=== PATIENT | female | born 1975 | race Caucasian/White ===

== ENCOUNTER → 2017-03-06 | Day surgery (SDC) | payer OTHER ==
[~2017-03-06] MED LIST: LACTATED RINGER'S 1000 ML INJ 1,000 ML ONE; OMEP20CA5 PO; PROPOFOL 200 MG/20 ML AMP IV ONE
--- NOTE | 2017-03-06 10:52 | GIPROC ---
[facility] [address] [facility], [address] EGD PROCEDURE REPORT EXAM DATE: 03/06/2017 PATIENT NAME: Marah Dial MR #: [id number] BIRTHDATE: 1975 ATTENDING: Anabell Murray MD ORDER #: [id number] COLLEGE TEACHER: Nica Mckeon RN STATUS: outpatient INDICATIONS: The patient is a 41 yr old female here for an EGD due to history of esophageal reflux PROCEDURE PERFORMED: EGD w/ biopsy MEDICATIONS: None and Per Anesthesia. TOPICAL ANESTHETIC: CONSENT: The patient understands the risks and benefits of the procedure and understands that these risks include, but are not limited to: sedation, allergic reaction, infection, perforation and/or bleeding. Alternative means of evaluation and treatment include, among others: physical exam, x-rays, and/or surgical intervention. The patient elects to proceed with this endoscopic procedure. medical equipment was checked for proper function. Hand hygiene and appropriate measures for infection prevention was taken. After the risks, benefits and alternatives of the procedure were thoroughly explained, Informed consent was verified, confirmed and timeout was successfully executed by the treatment team. The patient was anesthetized with topical anesthesia and the EG-[id number] ([id number]) endoscope was introduced through the mouth and advanced to the second portion of the duodenum. Retroflexed views revealed no abnormalities The gastroscope was then slowly withdrawn and removed. STOMACH: There was erythematous moderate gastritis in the gastric antrum. A biopsy was performed using cold forceps. Sample sent for histology. ESOPHAGUS: The mucosa of the esophagus appeared normal. DUODENUM: The duodenal mucosa appeared normal in the bulb and second portion of the duodenum. ADVERSE EVENTS: There were no complications. IMPRESSIONS: 1. There was erythematous gastritis in the gastric antrum; biopsy was performed 2. The esophagus appeared normal 3. Normal duodenal mucosa in the bulb and second portion of the duodenum 4. Retroflexed views revealed no abnormalities RECOMMENDATIONS: 1. Await biopsy results. Biopsy results will not be ready for 7-10 days. If you don't hear from us in two weeks, call our office for biopsy results. 2. Anti-reflux regimen PATIENT CONDITION: stable DISPOSITION: Home REPEAT EXAM: Return 3 years EGD Anabell Murray MD eSigned: Anabell Murray MD 03/06/2017 10:51 AM cc: Werner Joyner [facility] [place] PATIENT NAME: Marah Dial Mervin MR#: [id number]
== END | disposition home or self-care (01) ==
LOC: ESDC 09:10
PROVIDERS: ATTEND Internal Medicine Gastroenterology
DX: K21.9 Gastro-esophageal reflux disease without esophagitis (principal); K29.70 Gastritis, unspecified, without bleeding
CPT/HCPCS: 00740; 43239; 88305; 88312; J3010; J7120

== ENCOUNTER → 2017-03-20 | Outpatient (CLI) | payer OTHER ==
[~2017-03-20] MED LIST changes: -LACTATED RINGER'S 1000 ML INJ 1,000 ML ONE; -PROPOFOL 200 MG/20 ML AMP IV ONE
[2017-03-20 08:26] LABS: BLOOD GAS BASE EXCESS 1.1 mmol/L (-2-2); BLOOD GAS CARBOXYHEMOGLOBIN 1.3 % (0-4); BLOOD GAS HCO3 25 mmol/L (22-26); BLOOD GAS METHEMOGLOBIN 1.3 % (0-2); BLOOD GAS O2 HGB SATURATION 95 % (90-100); BLOOD GAS OXYGEN CONTENT 15.9 Vol % (12.0-20.0); BLOOD GAS PCO2 37 mmHg (38-42); BLOOD GAS PO2 96 mmHg (61-120); BLOOD GAS TOTAL HGB 11.9 G/DL (12.0-16.0); CRITICAL VALUE NO; TEMP CORR TO 98.6
[2017-03-20 08:27] LABS: DRAW SITE RT RADIAL; FIO2 21 %; NUMBER OF ARTERIAL PUNCTURES 1; STAT NO; ULNAR PULSE PRESENT
--- NOTE | 2017-03-21 10:05 | RSPPFT ---
DATE OF PROCEDURE: 03/20/17 COMMENTS: Spirometry with FVC of 3.4 predicted 3.6, FEV1 of 2.6 predicted 2.8, FEV1/FVC ratio at 78% predicted 77%. Lung volumes are basically within the predicted range as well as the DLCO. IMPRESSION: On the basis of the above, patient has flow values, lung volumes and DLCO within the predicted range.
== END ==
LOC: HRSP 07:43
PROVIDERS: ATTEND Internal Medicine Pulmonary Disease
DX: G47.30 Sleep apnea, unspecified (principal)
CPT/HCPCS: 36600; 82805; 94060; 94620; 94726; 94729

== ENCOUNTER 2018-03-19 07:30 | Inpatient (IN) | payer OTHER ==
[~2018-03-19] VITALS: Ht 166.4 cm; Wt 125.0 kg
[2018-05-10] MEDS ORDERED: OMEP40CA2 PO (09:49)
[2018-05-11] MEDS ORDERED: CHOL1CAP34 PO (08:59)
[2018-05-11] MEDS ORDERED: HYDR25TA5 PO (08:59)
[2018-05-11] MEDS ORDERED: LOSA25TA PO (08:59)
[2018-05-11] MEDS ORDERED: ZOFR4TAB PO (10:50)
[2018-05-11] MEDS ORDERED: PANT40TA3 PO (10:50)
[2018-05-11] MEDS ORDERED: SCOP1PAT2 TD (10:50)
[2018-05-11] MEDS ORDERED: HYDR2TAB PO (10:50)
[2018-05-14] MEDS ORDERED: LACTATED RINGER'S 1000 ML IV PRN (09:00)
[2018-05-14] MEDS ORDERED: METOPROLOL TARTRATE 25 MG TAB PO PRN (09:00)
[2018-05-14] MEDS ORDERED: CHLORHEXIDINE GLUCONATE 2 % 1 PACK (2 CLOTHS) TOPICAL PRN (09:00)
[2018-05-14] MEDS ORDERED: SODIUM CHLORID 0.9% 500 ML IV PRN (09:00)
[2018-05-14] MEDS ORDERED: POVIDONE IODINE 5% (ANTISEPSIS KIT) 4 APPLICATIONS EACH NARE PRN (09:00)
[2018-05-14] MEDS ORDERED: ACETAMINOPHEN 1000 MG/100 ML 100 ML IV SCH (09:15)
[2018-05-14] MEDS ORDERED: ONDANSETRON ODT 4 MG TAB PO SCH (09:15)
[2018-05-14] MEDS ORDERED: ceFAZolin 2 GM PREMIX 50 ML IV SCH (09:15)
[2018-05-14] MEDS ORDERED: metroNIDAZOLE 500 MG INJ 100 ML IV SCH (09:15)
[2018-05-14] MEDS ORDERED: APREPITANT 40 MG CAP PO SCH (09:15)
[2018-05-14] MEDS ORDERED: SUGAMMADEX SODIUM 200 MG/2 ML VIAL IV PUSH ONE (09:58)
[2018-05-14] MEDS ORDERED: BUPIVACAINE/EPINEPHRINE 0.5% PF 10 ML VIAL ONE (10:48)
[2018-05-14] MEDS ORDERED: ROCURONIUM INJ 50 MG/5 ML SYRINGE IV PUSH ONE (12:00)
[2018-05-14] MEDS ORDERED: DEXAMETHASONE SOD PHOS 4 MG/ML VIAL IV ONE (12:00)
[2018-05-14] MEDS ORDERED: LACTATED RINGER'S 1000 ML INJ 1,000 ML IV ONE (12:00)
[2018-05-14] MEDS ORDERED: LIDOCAINE HCL 1% PF 5 ML SYRINGE OTHER ONE (12:00)
[2018-05-14] MEDS ORDERED: PROPOFOL 200 MG/20 ML AMP IV ONE (12:00)
[2018-05-14] MEDS ORDERED: ONDANSETRON HCL 4 MG/2 ML VIAL IV PUSH ONE (12:00)
[2018-05-14] MEDS ORDERED: ePHEDrine/NS 25 MG/5 ML SYRINGE IV ONE (12:00)
[2018-05-14] MEDS ORDERED: diphenhydrAMINE HCL 50 MG/ML VIAL IV PUSH PRN (13:45)
[2018-05-14] MEDS ORDERED: diphenhydrAMINE HCL ELIXIR 12.5 MG/5 ML CUP PO PRN (13:45)
[2018-05-14] MEDS ORDERED: SODIUM CHLORIDE 0.9% FLUSH 10 ML FLUSH IV FLUSH PRN (13:45)
[2018-05-14] MEDS ORDERED: NALOXONE HCL 0.4 MG/ML AMP IV PUSH PRN (13:45)
[2018-05-14] MEDS ORDERED: Post-op Orders (for Pharmacy) OTHER ONE (13:45)
[2018-05-14] MEDS ORDERED: ONDANSETRON HCL 4 MG/2 ML VIAL ONE (14:03)
[2018-05-14] MEDS ORDERED: MIDAZOLAM HCL 2 MG/2 ML VIAL ONE (14:04)
[2018-05-14] MEDS ORDERED: MORPHINE SULFATE 4 MG/ML INJ ONE (14:05)
[2018-05-14] MEDS ORDERED: *morphine SULFATE 4 MG/ML PERIprocedure ONLY ONE ×2 (14:13→14:33)
[2018-05-14] MEDS ORDERED: ENALAPRILAT 1.25 MG/ML VIAL IV PUSH PRN (14:15)
[2018-05-14] MEDS: METOCLOPRAMIDE HCL 10 MG/2 ML VIAL IV PUSH SCH ×2 (14:15→20:37)
[2018-05-14] MEDS ORDERED: DO NOT ADM ANY ANTICOAGULANT DRUGS PRN (14:30)
[2018-05-14] MEDS: D5-1/2 NS + KCL 20 MEQ INJ 1,000 ML IV SCH ×2 (14:45→20:47)
[2018-05-14] MEDS: MORPHINE SULFATE 30 MG/30 ML PCA IV SCH ×2 (14:53→23:18)
[2018-05-14] MEDS ORDERED: HYDROmorphone HCL PF 2 MG/ML VIAL ONE ×2 (14:55→15:55)
[2018-05-14] MEDS: RESP: ALBUTEROL 2.5 MG/3 ML NEB (SCH) INH ×2 (16:30→20:55)
[2018-05-14] MEDS: ACETAMINOPHEN 1000 MG/100 ML 100 ML IV SCH ×2 (17:50→23:15)
[2018-05-14] MEDS ORDERED: ENOXAPARIN SODIUM 40 MG/0.4 ML SYRINGE SQ SCH (18:00)
[2018-05-14] MEDS: ONDANSETRON ODT 4 MG TAB PO PRN (18:42)
[2018-05-14 20:00] VITALS: BP 124/69; PULSE 91; RESP 16; TEMP 98.3; O2SAT 96
[2018-05-14] MEDS: metroNIDAZOLE 500 MG INJ 100 ML IV SCH (20:36)
[2018-05-14] MEDS: SODIUM CHLORIDE 0.9% FLUSH 10 ML FLUSH IV FLUSH SCH (20:37)
[2018-05-14] MEDS: CEFAZOLIN INJ 1,000 MG in SODIUM CHLORIDE 0.9% INJ 100 ML IV SCH (20:47)
[2018-05-14] MEDS: PCA - TOTAL MG MORPHINE DELIVERED PER SHIFT SCH (20:48)
[2018-05-14 20:55] VITALS: O2SAT 94
[2018-05-15] VITALS: BP 114/57; PULSE 85; RESP 16; TEMP 98.4; O2SAT 96
[2018-05-15] MEDS: ONDANSETRON ODT 4 MG TAB PO PRN ×2 (00:30→06:30)
[2018-05-15] MEDS: RESP: ALBUTEROL 2.5 MG/3 ML NEB (SCH) INH ×5 (00:30→15:54)
[2018-05-15] MEDS: METOCLOPRAMIDE HCL 10 MG/2 ML VIAL IV PUSH SCH ×2 (02:42→08:55)
[2018-05-15] MEDS: metroNIDAZOLE 500 MG INJ 100 ML IV SCH ×2 (02:42→12:46)
[2018-05-15 04:00] VITALS: BP 115/59; PULSE 87; RESP 16; TEMP 98.6; O2SAT 96
[2018-05-15] MEDS: CEFAZOLIN INJ 1,000 MG in SODIUM CHLORIDE 0.9% INJ 100 ML IV SCH ×2 (05:04→12:44)
[2018-05-15] MEDS: PCA - TOTAL MG MORPHINE DELIVERED PER SHIFT SCH ×2 (06:00→13:47)
[2018-05-15] MEDS: D5-1/2 NS + KCL 20 MEQ INJ 1,000 ML IV SCH ×2 (06:30→13:47)
[2018-05-15] MEDS: ACETAMINOPHEN 1000 MG/100 ML 100 ML IV SCH ×2 (06:30→12:41)
[2018-05-15 07:38] LABS: BASOPHIL % 0.1 % (0.0-2.0); HEMATOCRIT 32.3 % (35.0-46.0); HEMOGLOBIN 10.2 GM/DL (11.6-15.3); LYMPH % 4.2 % (9.0-44.0); LYMPHOCYTE # 0.6 TH/MM3 (1.0-4.8); MEAN CORPUSCULAR HEMOGLOBIN 23.5 PG (27.0-34.0); MEAN CORPUSCULAR HGB CONC 31.7 % (32.0-36.0); MEAN PLATELET VOLUME 9.6 FL (7.0-11.0); MONO % 6.4 % (0.0-8.0); MONOCYTE # 0.9 TH/MM3 (0-0.9); NEUT % 89.3 % (16.0-70.0); PLATELET COUNT 240 TH/MM3 (150-450); RED BLOOD COUNT 4.36 MIL/MM3 (4.00-5.30); RED CELL DISTRIBUTION WIDTH 20.4 % (11.6-17.2); WHITE BLOOD COUNT 14.5 TH/MM3 (4.0-11.0)
[2018-05-15 08:00] VITALS: BP 115/64; PULSE 65; RESP 18; TEMP 97.8; O2SAT 98
[2018-05-15 08:07] LABS: BICARBONATE 25.4 MEQ/L (21.0-32.0); CALCIUM 8.6 MG/DL (8.5-10.1); CREATININE 0.66 MG/DL (0.50-1.00); MAGNESIUM 2.2 MG/DL (1.5-2.5)
[2018-05-15 08:34] VITALS: O2SAT 97
[2018-05-15] MEDS: SODIUM CHLORIDE 0.9% FLUSH 10 ML FLUSH IV FLUSH SCH (08:55)
[2018-05-15] MEDS ORDERED: PANTOPRAZOLE SOD 40 MG DELAYED RELEASE TAB PO SCH (09:00)
[2018-05-15] MEDS ORDERED: SCOPOLAMINE 1.5 MG PATCH T-DERMAL ONE (10:45)
--- NOTE | 2018-05-15 11:19 | HHI.PR ---
Subjective Subjective Notes Improving nausea and pain control Tolerating PO fluids Objective Vitals/I&O Vital Signs Date Time Temp Pulse Resp B/P (MAP) Pulse Ox O2 Delivery O2 Flow Rate FiO2 05/15/18 08:34 97 21 05/15/18 08:00 97.8 65 18 115/64 (81) 05/14/18 20:55 Nasal Cannula 2.00 Labs Laboratory Tests Test 05/15/18 07:20 White Blood Count 14.5 Red Blood Count 4.36 Hemoglobin 10.2 Hematocrit 32.3 Mean Corpuscular Volume 74.0 Mean Corpuscular Hemoglobin 23.5 Mean Corpuscular Hemoglobin Concent 31.7 Red Cell Distribution Width 20.4 Platelet Count 240 Mean Platelet Volume 9.6 Neutrophils (%) (Auto) 89.3 Lymphocytes (%) (Auto) 4.2 Monocytes (%) (Auto) 6.4 Eosinophils (%) (Auto) 0.0 Basophils (%) (Auto) 0.1 Neutrophils # (Auto) 13.0 Lymphocytes # (Auto) 0.6 Monocytes # (Auto) 0.9 Eosinophils # (Auto) 0.0 Basophils # (Auto) 0.0 CBC Comment DIFF FINAL Differential Comment Blood Urea Nitrogen 7 Creatinine 0.66 Random Glucose 112 Calcium Level 8.6 Magnesium Level 2.2 Sodium Level 139 Potassium Level 3.6 Chloride Level 105 Carbon Dioxide Level 25.4 Anion Gap 9 Estimat Glomerular Filtration Rate 98 Cardiovascular: Regular Lungs: Clear Abdomen: Post-op tenderness Extremities: Perfused Wound Wound : Wound Location: Abdomen Appearance: Clean & Dry A/P Assessment and Plan 42yo F POD#1 laparoscopic RNY 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 I reviewed and agree with the findings presented. I attest that I had a [id number]-jw-[id number] encounter with the patient on the same day, and personally performed and documented my assessment and findings in the medical record. Discharge Planning D/C home possibly tonight Attending Statement The exam, history, and the medical decision-making described in the above note were completed with the assistance of the mid-level provider. I reviewed and agree with the findings presented. I attest that I had a [id number]-hq-azvt encounter with the patient on the same day, and personally performed and documented my assessment and findings in the medical record. Judy Murrieta May 15, 2018 11:19 Werner Barr MD May 17, 2018 15:23
[2018-05-15 12:00] VITALS: BP 112/62; PULSE 67; RESP 17; TEMP 97.6; O2SAT 98
[2018-05-15] MEDS ORDERED: LOSARTAN 25 MG TAB PO SCH (12:00)
[2018-05-15] MEDS ORDERED: HYDROmorphone HCL 4 MG TAB PO PRN (12:30)
[2018-05-15] MEDS ORDERED: METOCLOPRAMIDE HCL 10 MG/2 ML VIAL IV PUSH PRN (14:15)
[2018-05-18] MEDS ORDERED: REMOVE OLD PATCH T-DERMAL SCH (11:00)
--- NOTE | 2018-05-25 15:04 | MP ---
cc: Werner Barr MD DATE OF OPERATION: 05/14/2018 DATE OF : 1975 DATE OF OPERATION: 05/14/2018. PREOPERATIVE DIAGNOSIS: 1. Morbid obesity complicated by essential hypertension with a body mass index of 45. 2. Hiatal hernia. PROCEDURE: 1. Laparoscopic Cristopher-en-Y gastric bypass. 2. Laparoscopic hiatal hernia repair. SURGEON: Werner Barr MD SUBSCRIPTION CREW LEADER: Eze Watkins MD ANESTHESIA: General endotracheal anesthesia. ESTIMATED BLOOD LOSS: Scant. FINDINGS: Fatty liver, moderate-sized hiatal hernia. SPECIMENS: None. COMPLICATIONS: None. PROCEDURE IN DETAIL: The patient was brought to the operating room, placed on operating table in a supine position. Bilateral sequential inflation device placed on the lower extremities. General anesthesia instituted. The abdomen was prepped and draped sterilely. A point 15 cm distal to the xiphoid in the midline anesthetized with 0.25% Marcaine with epinephrine. A skin incision was made. A 5 mL OptiView port placed under direct vision and pneumoperitoneum created. Under direct vision, two 5 mm left lower quadrant, a 15 mm right upper quadrant and a 5 mm right upper quadrant ports were placed. Prior to placement of all ports, the skin and peritoneum anesthetized with 0.25% Marcaine with epinephrine. The patient was placed in reverse Trendelenburg position left side up. The Gabby-flex retractor was placed. The left lobe of the liver was retracted. The vasculature along the greater curve of the stomach was taken down using the harmonic scalpel starting at a distance 5 cm proximal to the pylorus and carried towards the angle of His. The posterior ligamentous attachments sharply . There was a hiatal hernia identified. The left and right crura of the diaphragm were dissected. The GE junction was mobilized into the abdominal cavity. The hernia sac was excised. The crura of the diaphragm was approximated with 0-silk suture in a kfxujv-os-yfanw manner. The 36-Divehi ViSiGi bougie was placed at the beginning of the case. It was placed on suction. Division of the stomach started 5 cm proximal to the pylorus and this was carried towards the angle of His to completely excise approximately 80% of the stomach. This was performed using an [employer] flex stapler. The first firing was with a black load, followed by a green load and two gold loads. All staple loads were reinforced with SeamGuard. A distance of 2 cm was left from the angle incisura and the staple line. A distance of 1 cm left from the GE junction and the staple line. The bougie was then removed. Methylene blue was then instilled through the orogastric tube after occluding the pylorus. There was no evidence of extravasation. The gastrocolic ligament was then sutured to the posterior leaflet of the SeamGuard using a 2-0 Vicryl suture in a running manner for the entire staple line. The bleeding points were controlled with Evicel. The excised stomach was removed from the peritoneal cavity in an Endopouch through the 15 mm port site. The fascia at the 15 mm port site approximated using an 0-Vicryl suture. The abdominal wall was then cleaned and a sterile dressing placed. The patient was awakened and taken to the recovery room. MD DESTINY Landa/CHEIKH , 02:51 PM , 03:03 PM
== END 2018-05-15 17:44 | disposition home or self-care (01) | DRG 621 ==
LOC: HSDI 05-14 07:34 → N07B 05-14 18:30
PROVIDERS: ADMIT Surgery; ATTEND Surgery
PROC: 0BQT4ZZ Repair Diaphragm, Percutaneous Endoscopic Approach (ICD-10-PCS; 2018-05-14)
PROC: 0DB64Z3 Excision of Stomach, Percutaneous Endoscopic Approach, Vertical (ICD-10-PCS; principal; 2018-05-14 11:37)
DX: E66.01 Morbid (severe) obesity due to excess calories (principal); K76.0 Fatty (change of) liver, not elsewhere classified; I10 Essential (primary) hypertension; K44.9 Diaphragmatic hernia without obstruction or gangrene; Z68.42 Body mass index [BMI] 45.0-49.9, adult; E78.5 Hyperlipidemia, unspecified; K21.9 Gastro-esophageal reflux disease without esophagitis; Z72.0 Tobacco use
CPT/HCPCS: 80048; 83735; 85025; 94150; 94640; 94664; J0131; J0690; J1100; J1170; J1650; J2250; J2270; J2405; J2765; J3010; J3480; J7120; J7613; J8501